=== PATIENT | female | born 1945 | race Caucasian/White ===

== ENCOUNTER 2024-05-17 18:23 | Emergency (ER) | payer SELFPAY ==
[2024-05-17] MEDS: Ondansetron 4 MG Tab.DIS PO STA (18:56)
[2024-05-17] MEDS: oxyCODONE 5 MG Tab PO STA (18:56)
== END 2024-05-17 20:11 | disposition home or self-care (01) ==
LOC: MW.ED 18:23
DX: S02.2XXA Fracture of nasal bones, initial encounter for closed fracture (principal); S05.12XA Contusion of eyeball and orbital tissues, left eye, initial encounter; M25.561 Pain in right knee; R07.89 Other chest pain; Z75.8 Other problems related to medical facilities and other health care; W00.0XXA Fall on same level due to ice and snow, initial encounter
CPT/HCPCS: 70450; 70486; 71250; 72125; 73562; 82947; 99285; A9270